=== PATIENT | male | born 1995 | race Caucasian/White ===

== ENCOUNTER 2016-07-13 00:27 | Inpatient (IN) | payer BC ==
[~2016-07-13] VITALS: Ht 177.8 cm; Wt 91.7 kg
[2016-07-13 00:48] LABS: BILIRUBIN,URINE NEGATIVE (NEG); GLUCOSE,URINE NEGATIVE (NEG); NITRITE,URINE NEGATIVE (NEG); PROTEIN,URINE NEGATIVE (NEG-TRACE); UROBILINOGEN,URINE 0.2 mg/dL (0.2 mg/dL)
--- NOTE | 2016-07-13 00:48 | ACF ---
Admission Forms Criteria ABDOMINAL PAIN Clinical Indications for Admission to Inpatient Care (Place 'X' for any and all applicable criteria): Admission is indicated for ANY ONE of the following(1)(2)(3)(4)(5): [ ]I. Inpatient admission required rather than observation care (Also use Abdominal Pain: Observation Care, as appropriate) because of ANY ONE of the following: [ ]a) Severe pain requiring acute inpatient management [ ]b) Identification of etiology/finding that requires inpatient care (eg, aortic dissection, free air) [ ]c) Absent bowel sounds with complete ileus(6) [ ]d) Suspected toxic megacolon [ ]e) Severe electrolyte abnormalities requiring inpatient care [ ]f) High fever or infection requiring inpatient admission as indicated by ANY ONE of following(7)(8): [ ] i) Appropriate outpatient or observational care antimicrobial treatment unavailable, not effective, or not feasible [ ] ii) Documented bacteremia [ ] iii) Temperature > 104.9 degrees F (oral) [ ] iv) T >103.1 F (oral) or < 96.8 F(rectal) that does not respond to all emergency treatment measures [ ]g) Signs of intestinal obstruction [B] [ ]h) Hemodynamic instability [ ]i) IV fluid to replace significant ongoing losses (greater than 3 L/m2 per day) (12)(13) [ ]j) Percutaneous or open drainage (eg, abscess, biliary tract ) procedures [ ]k) Parenteral nutrition regimen that must be implemented on inpatient basis [ ]l) Other condition,treatment or monitoring requiring inpatient admission. [ ]II. Peritoneal signs present [ ]III. Surgery needed that cannot be performed on an ambulatory basis. [ ]IV. Evaluation requires patient to not eat or drink for extended period ( eg, more than 24 hours). [ ]V. Contraindications and/or Inappropriate clinical situations for Observational Care in patients with abdominal pain, when ANY ONE of the following is required: [ ]a) Thorough evaluation is required to prevent catastrophic events due to delays in diagnosing (e.g.Mesenteric ischemia) 1,3 [ ]b) Patient with severe pathology or with chronic symptoms unlikely to improve in the ED stay (3) [ ]. General contraindications and/or Inappropriate clinical situations for Observational Care in patients with abdominal pain, when ANY ONE of the following is required: [ ]a) Prediction of prolongation of LOS based on ANY ONE of the following may be considered as a contraindication for observational care 2, 3, 4, 5, 6, 7, 8, 9, 10, 11 [ ]i) Age > 65 yrs. [ ]ii) Patient arriving by ambulance [ ]iii) Patient with high acuity [ ]iv) Patient requiring vital sign monitoring [ ]v) Patient on IV medication [ ]b) Systolic blood pressures 180mmHg 3,12 [ ]c) Patient with altered mental status including delirium and other alteration of consciousness, (3) [ ]d) Patient whose discharge disposition will be to a detention home or rehabilitation home should not be managed in Emergency Department Observation Unit. CMS rule requires 3 days hospital stay before such placement.3,13 [ ]e) Patient with failure to thrive due to broad array of etiologies 3,16,17 [ ]f) Inability to ambulate 3,14 Extended stay beyond goal length of stay may be needed for(2)(3): [ ]a) Persistent abdominal pain with suspected intra-abdominal process [ ]b) Diagnosed condition requiring continued stay (e.g., pancreatitis, complicated diverticulitis) [ ]c) Surgery (e.g., colectomy) The original [facility] [employer] content created by [employer] has been revised. The portions of the content which have been revised are identified through the use of italic text or in bold, and [facility] has neither reviewed nor approved the modified material.All other unmodified content is copyright [employer]. Please see references footnoted in the original [facility] [employer] edition 2016 ZHEN POLLACK Jul 13, 2016 00:48
[2016-07-13 00:56] LABS: BACTERIA,URINE 0 /HPF (0-FEW); RBC,URINE OCC /HPF (0-2); SQUAMOUS EPITHELIAL CELL,UR OCC /LPF; WBC,URINE OCC /HPF (0-4)
[2016-07-13] MEDS ORDERED: ONDANSETRON PF 4 MG/2 ML VIAL. IV ONE (01:00)
[2016-07-13] MEDS ORDERED: IV NORMAL SALINE 1000ML BAG 1,000 ML IV ONE (01:00)
[2016-07-13] MEDS ORDERED: KETOROLAC TROMETHAMINE 30 MG/ML INJ. IV ONE (01:00)
[2016-07-13 01:10] LABS: BASO # 0.1 x10^3/uL (0.0-0.2); BASO % 1 % (0-3); EOS % 0 % (0-3); HEMATOCRIT 41.4 % (39.0-53.0); HEMOGLOBIN 14.4 g/dL (13.0-17.5); LYMPH % 16 % (24-48); MEAN CORPUSCULAR HEMOGLOBIN 30 pg (25-35); MEAN CORPUSCULAR HGB CONC 35 g/dL (31-37); MEAN CORPUSCULAR VOLUME 87 fL (79-100); MONO % 8 % (0-9); NEUT % 75 % (31-73); PLATELET COUNT 192 x10^3/uL (140-400); RED BLOOD COUNT 4.74 x10^6/uL (4.30-5.70); RED CELL DISTRIBUTION WIDTH 12.8 % (11.5-14.5); WHITE BLOOD COUNT 12.2 x10^3/uL (4.0-11.0)
[2016-07-13 01:14] LABS: CALCIUM 9.7 mg/dL (8.5-10.1); CREATININE 1.3 mg/dL (0.7-1.3); GFR 70.4; POTASSIUM 3.3 mmol/L (3.5-5.1)
--- NOTE | 2016-07-13 02:03 | RAD ---
PROCEDURE CT abdomen and pelvis without contrast HISTORY Left flank pain for 2-3 days TECHNIQUE Noncontrast helical CT scanning of the abdomen and pelvis was performed. Without GI contrast, the sensitivity to detect GI tract pathology is decreased. Without IV contrast, the sensitivity to detect organ pathology is decreased. COMPARISON FINDINGS The liver is homogeneous in appearance on this noncontrast study and is normal in size. The spleen is homogeneous appearance on this noncontrast study and is normal in size. The pancreas is homogeneous appearance on this noncontrast study and is not enlarged. The gallbladder appears normal and no radiopaque gallstones are seen. No extrahepatic biliary ductal dilatation is seen. No adrenal masses are seen. There is a nonobstructive stone in each renal pelvis. There is a 6 millimeters stone at the left UVJ with moderate left hydroureter ureter left hydronephrosis. The appendix is normal.] No focal aneurysmal dilatation of the abdominal aorta is seen. No enlarged abdominal or pelvic lymphadenopathy is seen. No free intraperitoneal fluid or free intraperitoneal air is seen. No obstructive bowel pattern or inflammatory changes are seen. The lung bases are clear. No osteolytic process is seen. IMPRESSION [6 millimeter stone left UVJ with moderate left hydronephrosis left hydroureter. Electronically signed by: Kamlesh Mulligan MD (Jul 13, 2016 02:01:38)
--- NOTE | 2016-07-13 02:28 | PHYS DOC ---
Past Medical History Past Medical History: No Pertinent History Past Surgical History: No Surgical History Additional Information: "I VAPE" Drug Use: None Adult General Chief Complaint Chief Complaint: FLANK PAIN HPI HPI This is a 20-year-old male who's having significant left-sided flank pain that does radiate somewhat into his abdominal area for the last 3-4 days. He denies any nausea or vomiting. He also reports dysuria type symptoms but denies any blood in his urine. He states he has been able to eat and drink without any significant difficulty. He localizes all of his pain to the left flank area and rates it a 10 out of 10. He is speaking in complete sentences and does not appear to be in any acute distress. Review of Systems Review of Systems Constitutional: Denies fever or chills [] Eyes: Denies change in visual acuity, redness, or eye pain [] HENT: Denies nasal congestion or sore throat [] Respiratory: Denies cough or shortness of breath [] Cardiovascular: No additional information not addressed in HPI [] GI: Denies abdominal pain, nausea, vomiting, bloody stools or diarrhea [] : Has dysuria, denies hematuria [] Musculoskeletal: Denies back pain or joint pain [] Integument: Denies rash or skin lesions [] Neurologic: Denies headache, focal weakness or sensory changes [] Endocrine: Denies polyuria or polydipsia [] Current Medications Current Medications Current Medications Medications (Trade) Dose Ordered Sig/[facility] Start Time Stop Time Status Last Admin Dose Admin Ketorolac Tromethamine 30 mg 30 mg 1X ONCE 07/13/16 01:00 07/13/16 01:01 DC 07/13/16 00:59 30 MG Ondansetron HCl (Zofran) 4 mg 1X ONCE 07/13/16 01:00 07/13/16 01:01 DC 07/13/16 00:59 4 MG Sodium Chloride (Iv Sodium Chloride 0.9% 1000ml Bag) 1,000 ml @ 125 mls/hr Q8H 07/13/16 02:24 07/14/16 02:23 07/13/16 03:50 125 MLS/HR Allergies Allergies Allergies Coded Allergies Type Severity Reaction Last Updated Verified No Known Drug Allergies 07/13/16 No Physical Exam Physical Exam Constitutional: Well developed, well nourished, no acute distress, non-toxic appearance. [] HENT: Normocephalic, atraumatic, bilateral external ears normal, oropharynx moist, no oral exudates, nose normal. [] Eyes: PERRLA, EOMI, conjunctiva normal, no discharge. [] Neck: Normal range of motion, no tenderness, supple, no stridor. [] Cardiovascular:Heart rate regular rhythm, no murmur [] Lungs & Thorax: Bilateral breath sounds clear to auscultation [] Abdomen: Bowel sounds normal, soft, no tenderness, no masses, no pulsatile masses. [] Skin: Warm, dry, no erythema, no rash. [] Back: No tenderness, left CVA tenderness. [] Extremities: No tenderness, no cyanosis, no clubbing, ROM intact, no edema. [] Neurologic: Alert and oriented X 3, normal motor function, normal sensory function, no focal deficits noted. [] Psychologic: Affect normal, judgement normal, mood normal. [] Current Patient Data Vital Signs Vital Signs Date Time Temp Pulse Resp B/P Pulse Ox O2 Delivery O2 Flow Rate FiO2 07/13/16 01:03 81 17 148/82 97 Room Air 07/13/16 00:44 97.6 97.6 Lab Values Laboratory Tests Test 07/13/16 00:30 07/13/16 00:55 Urine Collection Type Unknown Urine Color Yellow Urine Clarity Clear Urine pH 6.0 Urine Specific [place] 1.025 Urine Protein Negativemg/dL (NEG-TRACE) Urine Glucose (UA) Negativemg/dL (NEG) Urine Ketones (Stick) Negativemg/dL (NEG) Urine Blood Negative (NEG) Urine Nitrite Negative (NEG) Urine Bilirubin Negative (NEG) Urine Urobilinogen Dipstick 0.2mg/dL (0.2 mg/dL) Urine Leukocyte Esterase Negative (NEG) Urine RBC Occ/HPF (0-2) Urine WBC Occ/HPF (0-4) Urine Squamous Epithelial Cells Occ/LPF Urine Bacteria 0/HPF (0-FEW) Urine Mucus Slight/LPF White Blood Count 12.2x10^3/uL (4.0-11.0) H Red Blood Count 4.74x10^6/uL (4.30-5.70) Hemoglobin 14.4g/dL (13.0-17.5) Hematocrit 41.4% (39.0-53.0) Mean Corpuscular Volume 87fL (79-100) Mean Corpuscular Hemoglobin 30pg (25-35) Mean Corpuscular Hemoglobin Concent 35g/dL (31-37) Red Cell Distribution Width 12.8% (11.5-14.5) Platelet Count 192x10^3/uL (140-400) Neutrophils (%) (Auto) 75% (31-73) H Lymphocytes (%) (Auto) 16% (24-48) L Monocytes (%) (Auto) 8% (0-9) Eosinophils (%) (Auto) 0% (0-3) Basophils (%) (Auto) 1% (0-3) Neutrophils # (Auto) 9.2x10^3uL (1.8-7.7) H Lymphocytes # (Auto) 2.0x10^3/uL (1.0-4.8) Monocytes # (Auto) 0.9x10^3/uL (0.0-1.1) Eosinophils # (Auto) 0.1x10^3/uL (0.0-0.7) Basophils # (Auto) 0.1x10^3/uL (0.0-0.2) Sodium Level 141mmol/L (136-145) Potassium Level 3.3mmol/L (3.5-5.1) L Chloride Level 102mmol/L (98-107) Carbon Dioxide Level 25mmol/L (21-32) Anion Gap 14 (6-14) Blood Urea Nitrogen 24mg/dL (8-26) Creatinine 1.3mg/dL (0.7-1.3) Estimated GFR (Cockcroft-Gault) 70.4 Glucose Level 107mg/dL (70-99) H Calcium Level 9.7mg/dL (8.5-10.1) Laboratory Tests 07/13/16 00:55 Laboratory Tests 07/13/16 00:55 EKG EKG [] Radiology/Procedures Radiology/Procedures PROCEDURE CT abdomen and pelvis without contrast HISTORY Left flank pain for 2-3 days TECHNIQUE Noncontrast helical CT scanning of the abdomen and pelvis was performed. Without GI contrast, the sensitivity to detect GI tract pathology is decreased. Without IV contrast, the sensitivity to detect organ pathology is decreased. COMPARISON FINDINGS The liver is homogeneous in appearance on this noncontrast study and is normal in size. The spleen is homogeneous appearance on this noncontrast study and is normal in size. The pancreas is homogeneous appearance on this noncontrast study and is not enlarged. The gallbladder appears normal and no radiopaque gallstones are seen. No extrahepatic biliary ductal dilatation is seen. No adrenal masses are seen. There is a nonobstructive stone in each renal pelvis. There is a 6 millimeters stone at the left UVJ with moderate left hydroureter ureter left hydronephrosis. The appendix is normal.] No focal aneurysmal dilatation of the abdominal aorta is seen. No enlarged abdominal or pelvic lymphadenopathy is seen. No free intraperitoneal fluid or free intraperitoneal air is seen. No obstructive bowel pattern or inflammatory changes are seen. The lung bases are clear. No osteolytic process is seen. IMPRESSION [6 millimeter stone left UVJ with moderate left hydronephrosis left hydroureter. Electronically signed by: Kamlesh Mulligan MD (Jul 13, 2016 02:01:38) Course & Med Decision Making Course & Med Decision Making Pertinent Labs and Imaging studies reviewed. (See chart for details) 20-year-old male who's having significant left flank pain that was given a dose IV Toradol with significant improvement CT without contrast demonstrated a 6 mm stone in the left UVJ with moderate left hydronephrosis and left hydroureter. I discussed the need to admit the patient with Dr. Nicole who agreed to accept the patient for further evaluation and treatment with urology consult. The case was also discussed with the on-call urologist, Dr. Perdomo, who agreed with this plan to continue to treat with IV fluids and pain control as needed. He will evaluate him later today. His laboratory workup was unremarkable. His urinalysis shows no obvious signs of infection and a few rbc's. Dragon Disclaimer Dragon Disclaimer This electronic medical record was generated, in whole or in part, using a voice recognition dictation system. Departure Departure Impression: Primary Impression: Urolithiasis Additional Impressions: Hydronephrosis Hydroureter Disposition: 09 ADMITTED INPATIENT Admitting Physician: Raffy Nicole Condition: STABLE Referrals: MARGOT BLANKENSHIP MD (PCP) Problem Qualifiers POOL GUTIÉRREZ DO Jul 13, 2016 02:28
[2016-07-13] MEDS ORDERED: ONDANSETRON PF 4 MG/2 ML VIAL. IV PRN (02:30)
--- NOTE | 2016-07-13 02:56 | ACF ---
Admission Forms Criteria UROLOGIC DISEASE [facility] Clinical Indications for Admission to Inpatient Care (Place ' X' for any and all applicable criteria): Hospital admission is needed for appropriate care of the patient because of ANY ONE of the following: [ ]I. New-onset Reduced urine output, or hydronephrosis remaining after emergency or observation level care indicated by ANY ONE the following (1)(2) [ ]a) Urine output less than 0.5 mL/kg/hour for 6 hours in adult [ ]b) Anuria (urine output less than 0.1 mL/kg/hour) for 4 hours in any age group [ ]c) Reduced output in child as indicated by ANY ONE of the following (3) [ ]i) Urine output less than 2 mL/kg/hour for 6 hours in younger than 2 [ ]ii) Urine output less than 1 mL/kg/hour for 6 hours in child younger than 12 years [ ]iii) Urine output less than 0.75 mL/kg/hour for 6 hours in adolescent younger than 18 years [ ]II. Acute urinary retention requiring inpatient management as indicated by ANY ONE of the following(1)(13): [ ]a) Hemodynamic instability remaining after emergency or observation level care (as appropriate) [ ]b) Retention cannot be alleviated via emergency or observation level care (eg, urinary catheter placement) [ ]c) Acute neurologic etiology (eg, cauda equina) [ ]d) Dehydration or other complications not manageable with emergency or observation level care [ ]e) Acute kidney injury (that does not qualify as Acute renal failure ) requiring inpatient care indicated by ALL of the following(5)(6)(7)(8) (9): [ ]i) Acute kidney injury indicated by ANY ONE of the following: [ ]1) 2-fold or more rise in serum creatinine from baseline [ ]2) Reduction of more than 50% in estimated glomerular filtration rate from baseline [ ]3) Urine output less than 0.5 mL/kg/hr for 12 hours despite adequate volume status [ ]ii) Worsening clinical status (eg, rising creatinine) despite outpatient and observation care treatment (eg, hydration) [ ]III. Gross hematuria requiring inpatient management as indicated by ANY ONE of the following(1)(2): [ ]a) Evidence of renal obstruction [ ]b) Reduced urine output (eg urine output <0.5mL/kg per hr over 6 hrs) [ ]c) Clot retention after urinary catheterization and irrigation [ ]d) Anemia [ ]e) Systemic cause needing inpatient treatment (eg, Goodpasture syndrome) [ ]IV. Urologic infection requiring inpatient care as indicated by ANY ONE of the following(10)(11)(12): [ ]a) Dehydration that is severe or persistent [ ]b) Hemodynamic instability [ ]c) Failure of, or inability to tolerate, outpatient treatment regimen [ ]d) Increased creatinine without known prior cause [ ]e) Known renal or urologic abnormalities (eg, indwelling catheter , structural abnormalities) [ ]f) Recent urologic manipulation [ ]g) Urinary obstruction [ ]h) Immunocompromised state [ ]V. Renal disease needing inpatient care (eg, nephritis, nephrosis) as indicated by ANY ONE of the following(2)(3)(4): [ ]a) Systemic cause (eg, Goodpasture syndrome) needing inpatient care (5) [ ]b) Rapidly progressive disease needing inpatient care (eg, plasmapheresis, immunosuppression)(6) [ ]c) Hemoptysis [ ]d) Hemolysis or thrombosis [ ]e) Anasarca needing inpatient care [ ]f) Hemolytic uremic syndrome(7)(8) [ ]g) Acute renal failure [ ]h) Significant uremic complications as indicated by ANY ONE of the following(1)(2)(3): [ ]i) Outpatient therapy is ineffective or not feasible for ANY ONE of the following: [ ]1) Severe heart failure [ ]2) Severe hypertension [ ]3) Pleural effusion [ ]4) Pericarditis or pericardial effusion [ ]ii) Cardiac arrhythmias of immediate concern [ ]iii) Recurrent seizures [ ]iv) Bleeding abnormalities (eg, platelet dysfunction) with active (eg, gastrointestinal) bleeding [ ]v) Dialysis indicated before long-term access or ambulatory arrangements can be made [ ]vi) Significant metabolic or electrolyte abnormalities (eg , severe acidosis or hyperkalemia) [ ]vii) Intractable nausea or vomiting [ ]viii) Encephalopathy [X]. New-onset oliguria, anuria, or hydronephrosis not responsive to emergency and observation care treatment (as appropriate)(1) [ ]VII. Trauma to renal, genital, or urologic system requiring inpatient medical care(14)(15)(16)(17) [ ]VIII.Scrotal, testicular, or epididymal disorder requiring inpatient care indicated by ANY ONE of the following(1)(14)(15)(16): [ ]a) Scrotal edema or infection not manageable with emergency or observation level care [ ]b) Orchitis not manageable with emergency or observation level care [ ]c) Epididymitis not manageable with emergency or observation level of care [ ]d) Other scrotal, testicular, or epididymal disorder (eg, infection, inflammation) not manageable with emergency or observation level care [ ]IX. Urologic Disease and ALL of the following: [ ]a) Symptom or finding for which emergency and observation care have failed or are not considered appropriate (Use General Criteria: Observation Care as appropriate) [ ]b) Presence of ANY ONE of the following: [ ]i) A General Admission Criteria [ ]ii) A Pediatric General Admission Criteria The original [facility] content created by [facility] has been revised. The portions of the content which have been revised are identified through the use of italic text or in bold, and [facility] has neither reviewed nor approved the modified material. All other unmodified content is copyright [facility]. Please see references footnoted in the original [facility] edition 2016 Admission Criteria Met?: Yes ZHEN POLLACK Jul 13, 2016 02:56
[2016-07-13 03:30] VITALS: BP 124/73
[2016-07-13] MEDS: IV NORMAL SALINE 1000ML BAG 1,000 ML IV SCH ×3 (03:50→19:35)
[2016-07-13] MEDS: FENTANYL PF 100 MCG/2 ML VIAL. IV PRN ×7 (03:54→22:56)
[2016-07-13] MEDS ORDERED: NICOTINE 14MG PATCH. TD PRN (04:15)
[2016-07-13] MEDS ORDERED: INFLUENZA VAX SCREEN BY RX. MC ONE (05:15)
[2016-07-13 07:00] VITALS: BP 120/67
[2016-07-13] MEDS ORDERED: NICOTINE 14MG PATCH. TD SCH (09:00)
[2016-07-13] MEDS ORDERED: FLU VACC QUAD 2016-17 (36MOS+)/PF 0.5 ML SYRINGE. VAX IM ONE (09:00)
[2016-07-13 11:00] VITALS: BP 139/84
[2016-07-13 15:00] VITALS: BP 123/67
--- NOTE | 2016-07-13 17:17 | PDOC ---
Provider Note Provider Note UROLOGY: c/c Acuter Left flank pain Patient admitted through ER with acute left flank pain, onset couple days ago Exam: dictated X-rays: reviewed Impression: 6mm calculus at L UVJ Plan: On schedule for Cystoscopy Left retrograde, possible stone manipulation, possible stent placement, explained to patient, he appears to understand and agreeable. VALERIA GOSS DO Jul 13, 2016 17:17
[2016-07-13] MEDS ORDERED: HYDROCODONE/APAP 7.5/325MG TABLET. PO PRN (18:15)
[2016-07-13 19:12] VITALS: BP 122/65
[2016-07-13] MEDS: HYDROCODONE/APAP 7.5/325MG TABLET. PO PRN (19:33)
[2016-07-13] MEDS ORDERED: TAMSULOSIN 0.4 MG CAP.ER.24H. PO SCH (21:00)
[2016-07-13 23:07] VITALS: BP 115/47
--- NOTE | 2016-07-14 01:11 | HP ---
ADMIT DATE: 07/13/2016 CHIEF COMPLAINT: Abdominal pain. HISTORY OF PRESENT ILLNESS AND HOSPITAL COURSE: This patient has a 3-day history of increasing abdominal pain, initially associated with frequent urination and subsequently radiating to his left flank, became intensive and he came to the Emergency Room for further evaluation. He was found to have 6 mm ureteral stone at the UVJ junction. Due to severity of symptoms, the patient was admitted for IV fluids, pain management as well as urologic consultation. PAST MEDICAL HISTORY: Significant for depression, anxiety, and ADD. The patient takes no medications currently. PAST SURGICAL HISTORY: Significant for tonsillectomy. FAMILY HISTORY: Noncontributory. Mother and father are alive and supportive. SOCIAL HISTORY: He smokes tobacco less than half pack a day. He denies alcohol use. He lives with his girlfriend. He works as a gymnastics teacher. ALLERGIES: The patient has no known drug allergies. REVIEW OF SYSTEMS: The patient denies any nausea, vomiting or diarrhea, fever, cough, congestion or recent weight loss and had no symptoms until 3 days ago and did have frequent urination at that time. PHYSICAL EXAMINATION: GENERAL: He is a mildly obese male in mild distress. He is alert and oriented x 3. HEENT: Benign. NECK: Supple. CARDIAC: Regular rate and rhythm. LUNGS: Clear. ABDOMEN: Soft with minimal tenderness in his left flank. EXTREMITIES: 2+ pulses without edema. NEUROLOGIC: Showed no unilateral findings. ASSESSMENT: 1. Acute ureteral calculus with hydronephrosis. 2. Mild hypokalemia. PLAN: To proceed with IV fluids and urologic consultation and monitor the patient's symptoms. Continue with pain control as needed and discharge to home once stable. MARGOT BLANKENSHIP MD DR: NIRU/majo JOB#: [id number] / [id number]
[2016-07-14 02:53] VITALS: BP 112/77
[2016-07-14 07:00] VITALS: BP 111/42
[2016-07-14] MEDS ORDERED: LIDOCAINE 1% 1 ML SYRINGE. ID PRN (07:00)
[2016-07-14] MEDS ORDERED: HYDROMORPHONE 2 MG/ML VIAL. IV PRN (07:00)
[2016-07-14] MEDS ORDERED: PROCHLORPERAZINE 10 MG/2 ML VIAL. IV PRN (07:00)
[2016-07-14] MEDS ORDERED: IV RINGERS,LACTATED 1000ML 1,000 ML IV SCH (07:00)
[2016-07-14] MEDS ORDERED: FENTANYL PF 100 MCG/2 ML VIAL. IV PRN (07:00)
[2016-07-14] MEDS ORDERED: MORPHINE SULFATE 2 MG/ML DISP.SYRIN. IV PRN ×2 (07:00→08:00)
[2016-07-14] MEDS ORDERED: ONDANSETRON PF 4 MG/2 ML VIAL. IV PRN ×2 (07:00→08:00)
[2016-07-14] MEDS ORDERED: MORPHINE SULFATE 10 MG/ML VIAL. IV PRN (08:15)
[2016-07-14] MEDS ORDERED: FENTANYL PF 100 MCG/2 ML VIAL. ONE (11:45)
[2016-07-14] MEDS ORDERED: SEVOFLURANE 31 TO 60 MINUTES. IH ONE (11:46)
[2016-07-14] MEDS ORDERED: PROPOFOL 20 ML IV ONE (11:46)
[2016-07-14] MEDS ORDERED: LIDOCAINE 2% 100 MG/5 ML DISP.SYRIN. ONE (11:46)
[2016-07-14] MEDS ORDERED: METOCLOPRAMIDE HCL 10 MG/2 ML VIAL. ONE (11:50)
[2016-07-14] MEDS ORDERED: DEXAMETHASONE SOD PHOS 20 MG/5 ML VIAL. ONE (11:50)
[2016-07-14] MEDS ORDERED: ONDANSETRON PF 4 MG/2 ML VIAL. ONE (11:50)
[2016-07-14] MEDS ORDERED: IOHEXOL 300 MG/ML 50 ML VIAL. IV ONE (12:19)
--- NOTE | 2016-07-14 12:45 | PDOC ---
BRIEF OPERATIVE NOTE Date: Jul 14, 2016 Pre-Op Diagnosis Left flank pain, distal left ureteral calculus Post-Op Diagnosis same Procedure Performed Cystoscopy left retrograde, placement of ureteral stent (4.8 by 26cm) Surgeon Leanne Anesthesia Type: General Specimens Obtained None Findings impacted distal left ureteral calculus Complications None Additional Remarks Will need outpatient ureteroscopy-holmium laser lithotripsy VALERIA GOSS DO Jul 14, 2016 12:45
--- NOTE | 2016-07-14 13:01 | PDOC ---
Provider Note Provider Note Urology: Possible discharge later today Will bring back next week for laser lithotripsy VALERIA GOSS DO Jul 14, 2016 13:01
--- NOTE | 2016-07-14 13:10 | CONS ---
DATE OF CONSULTATION: 07/13/2016 CHIEF COMPLAINT: Acute left flank pain, distal left ureteral calculus. HISTORY OF PRESENT ILLNESS: This is a 20-year-old male that had been experiencing some left flank discomfort for several days prior to presenting to the Emergency Room with acute left flank pain. No previous history of kidney stones. He underwent a CT scan which revealed a distal left ureteral calculus. ALLERGIES: No known drug allergies. PAST MEDICAL HISTORY: Negative for any chronic illnesses. PAST SURGICAL HISTORY: The patient denies any major abdominal surgery. REVIEW OF SYSTEMS: The patient denies any chronic problems. PHYSICAL EXAMINATION: GENERAL DESCRIPTION: A 20-year-old male, alert, oriented, ambulating in the room, in no acute pain or discomfort at this time. ABDOMEN: Soft, nontender. Negative for right flank pain. He has some left flank discomfort to deep palpation. It radiates into the left pelvis. There are no palpable abdominal masses. No suprapubic tenderness. RECTAL: Not performed at this time. MUSCULOSKELETAL: Good range of motion. Negative for cyanosis or edema. LABORATORY STUDIES: The patient's white blood cell count slightly elevated at 12.2, hemoglobin 14.4, hematocrit 41.4, platelets are adequate. Chemistries: Potassium slightly low at 3.3. His BUN is 24, creatinine 1.3. Urinalysis: Tatiana in color, occasional red blood cells, occasional white blood cells, negative for bacteria. X-RAY STUDIES: A CT scan without contrast was reviewed. This demonstrates a 6 mm calculus in the distal left ureter at the ureterovesical junction with moderate left hydronephrosis. IMPRESSION: 1. Acute left ureteral colic -- improved. 2. Distal 6 mm calculus at the left ureterovesical junction causing moderate left hydronephrosis. PLAN: I have placed the patient on the surgery schedule for cystoscopy, left retrograde pyelogram, possible stone manipulation, possible stent placement. The procedure was explained to the patient. He appears to understand and is agreeable. VALERIA GOSS DO DR: LORENZA/majo JOB#: [id number] / [id number]
[2016-07-14] MEDS: FENTANYL PF 100 MCG/2 ML VIAL. IV PRN ×2 (13:13→13:24)
[2016-07-14] MEDS ORDERED: HYDR-2762 PO (13:18)
[2016-07-14 13:45] VITALS: BP 111/61
[2016-07-14] MEDS: HYDROCODONE/APAP 7.5/325MG TABLET. PO PRN (14:59)
--- NOTE | 2016-07-14 15:17 | OP ---
DATE OF SURGERY: 07/14/2016 PREOPERATIVE DIAGNOSIS: Left flank pain, distal left ureteral calculus (6 mm). POSTOPERATIVE DIAGNOSIS: Left flank pain, distal left ureteral calculus (6 mm). PROCEDURE: Cystoscopy, left retrograde pyelogram, placement of left ureteral stent (4.8 Armenian x 26 cm). SURGEON: Valeria Goss DO. ANESTHESIA: General. INDICATIONS AND JUDGMENT: This is a 20-year-old male admitted to the hospital with acute left flank pain. He denies previous history of kidney stones. CT scan revealed a 6 mm calculus at the left ureterovesical junction. He was placed on IV hydration and analgesia, but failed to pass the stone spontaneously; therefore, it was felt that he would benefit from cystoscopy, stent placement in preparation for outpatient definitive surgery. This was explained to the patient. He appeared to understand and was agreeable. DESCRIPTION OF PROCEDURE: The patient was given Levaquin 500 mg IV. He was then taken to the operating room and placed on the operating room table in supine position, given a general anesthetic and then placed in a dorsolithotomy position using [place] stirrups since we do not have a cystoscopy table. A C-arm was moved into position. Rigid cystoscopy was performed. The urethra was normal in course and caliber. The prostate was unremarkable. Scope was advanced into the bladder. The bladder was examined. There was no evidence of calculi or tumor within the bladder. I cannulated the left ureteral orifice with an 8-Armenian cone tip ureteral catheter. Contrast was injected. A filling defect was noted in the intramural ureter. There was high-grade obstruction down to this level. I then attempted to pass a 0.035 Glidewire up the left ureteral orifice, but could not get past the calculus. Therefore, I advanced a 5-Armenian open tip catheter up the left ureteral orifice and finally advanced it past the stone and then I advanced a 0.035 Glidewire through the lumen of this 5-Armenian ureteral catheter and passed the wire up into the renal pelvis and then removed the 5-Armenian open-ended catheter. I then utilized a 4.8 Armenian x 26 cm double-J ureteral stent and advanced it over the Glidewire past the impacted calculus and advanced it up into the left renal pelvis. The positioning appeared to be satisfactory; therefore, the wire was removed leaving the stent in place. The patient tolerated the procedure well and was sent to recovery room in satisfactory condition. Plans will be to get a KUB of the abdomen later this afternoon. He will most likely go home this afternoon with a prescription for Cipro antibiotics, Flomax and hydrocodone. We will set him up in about a week for ureteroscopy, holmium laser lithotripsy. VALERIA GOSS DO DR: LORENZA/majo JOB#: [id number] / [id number]
--- NOTE | 2016-07-14 16:51 | RAD ---
KUB, 07/14/2016: History: Left ureteral stent, follow-up calculus A left ureteral stent is in place. Its upper pigtail is projected over the upper pole of the left kidney. Its lower pigtail is projected over the left side of the urinary bladder. There is contrast material in the left renal collecting system from a recent retrograde pyelogram. A single small intrarenal calculus is again noted overlying the lower pole of the left kidney. There is a suggestion of a faint radiopacity adjacent to the distal shaft of the left ureteral stent, possibly representing a retained calculus. The abdominal gas pattern is unremarkable. The right kidney is obscured by overlying bowel gas. The patient's known right intrarenal calculus is not clearly visualized. IMPRESSION: 1. Small left intrarenal calculus. 2. Residual contrast material in the left renal collecting system from the recent retrograde pyelogram. 3. Left ureteral stent in place. 4. Possible tiny residual distal left ureteral calculus.
--- NOTE | 2016-07-14 22:02 | DS ---
DATE OF DISCHARGE: 07/14/2016 ADMITTING DIAGNOSES: Left ureteral calculus with hydronephrosis. DISMISSAL DIAGNOSES: Left ureteral calculus with hydronephrosis. HISTORY OF PRESENT ILLNESS AND HOSPITAL COURSE: This patient is a 20-year-old male with increasing left-sided abdominal pain, found to have ureteral stone by CAT scan at the [facility] with hydronephrosis. The patient underwent pain control and hydration for 24 hours and subsequently underwent urologic procedure to place stent. The patient will be discharged home with p.o. pain medications and to follow up in 1 week for repeat procedure and laser to try to ablate and manipulate the stone. The patient will be discharged once stable postop and follow up as recommended. MARGOT BLANKENSHIP MD DR: NIRU/majo JOB#: [id number] / [id number]
== END 2016-07-14 15:02 | disposition home or self-care (01) | DRG 694 ==
LOC: ER 00:27 → 4 NORTH 02:24
PROVIDERS: ADMIT Family Medicine; ATTEND Family Medicine
PROC: 3E0234Z Introduction of Serum, Toxoid and Vaccine into Muscle, Percutaneous Approach (ICD-10-PCS; 2016-07-13)
PROC: BT1F1ZZ Fluoroscopy of Left Kidney, Ureter and Bladder using Low Osmolar Contrast (ICD-10-PCS; 2016-07-14)
PROC: 0T778DZ Dilation of Left Ureter with Intraluminal Device, Via Natural or Artificial Opening Endoscopic (ICD-10-PCS; principal; 2016-07-14 12:30)
DX: N13.2 Hydronephrosis with renal and ureteral calculous obstruction (principal); F17.210 Nicotine dependence, cigarettes, uncomplicated; E87.6 Hypokalemia; N23 Unspecified renal colic; F32.9 Major depressive disorder, single episode, unspecified; F41.9 Anxiety disorder, unspecified; Z79.899 Other long term (current) drug therapy
CPT/HCPCS: 36415; 74000; 74176; 74420; 80048; 81001; 85027; 96361; 96374; 96375; 99406; C1769; C2617; J1100; J1885; J1956; J2270; J2405; J2704; J2765; J3010; J7030; J7120; Q9967; 99285-25